=== PATIENT | female | born 2005 | race Caucasian/White ===

== ENCOUNTER 2024-11-05 08:40 | Emergency (ER) | payer SELFPAY ==
[2024-11-05] MEDS: Sodium Chloride 0.9% 10 ML Syringe FLUSH PRN (09:21)
[2024-11-05] MEDS: Ondansetron 4 MG/2 ML SDV IVPUSH ONE (09:21)
[2024-11-05] MEDS: Sodium Chloride 0.9% 1,000 ML IV SCH (09:24)
[2024-11-05 09:31] LABS: BASOPHILS ABSOLUTE AUTO 0.1 x10-3/uL (0.0-0.1); BASOPHILS PERCENT AUTO 0.4 % (0.2-1.5); EOSINOPHILS PERCENT AUTO 0.2 % (0.6-8.1); HEMATOCRIT 34.6 % (34.2-48.2); HEMOGLOBIN 11.8 g/dL (11.4-15.5); LYMPHOCYTES ABSOLUTE AUTO 1.2 x10-3/uL (1.0-4.4); LYMPHOCYTES PERCENT AUTO 8.8 % (18.4-52.1); MEAN CORPUSCULAR HEMOGLOBIN 27.3 pg (23.9-33.9); MEAN CORPUSCULAR VOLUME 80.4 fL (76.7-100.5); MEAN PLATELET VOLUME 9.4 fL (7.1-12.4); MONOCYTES ABSOLUTE AUTO 0.7 x10-3/uL (0.3-1.0); MONOCYTES PERCENT AUTO 5.6 % (4.4-15.7); NEUTROPHILS ABSOLUTE AUTO 11.1 x10-3/uL (1.5-6.3); PLATELET COUNT,PLT 272 x10(3)uL (151-488); RED CELL DISTRIBUTION WIDTH 14.3 % (12.3-16.5); WHITE BLOOD CELL COUNT,WBC 13.1 x10-3/uL (3.0-10.3)
[2024-11-05 09:33] LABS: BILIRUBIN,URINE NEGATIVE (NEGATIVE); GLUCOSE,URINE NORMAL (NORMAL); KETONES,URINE NEGATIVE (NEGATIVE); LEUKOCYTE ESTERASE,URINE LARGE (NEGATIVE); NITRITE,URINE NEGATIVE (NEGATIVE); OCCULT BLOOD,URINE LARGE (NEGATIVE); PROTEIN,URINE 100 mg/dL (NEGATIVE); UROBILINOGEN,URINE NORMAL (NEGATIVE)
[2024-11-05 09:34] LABS: APPEARANCE,URINE SLIGHTLY CLOUDY (CLEAR); COLOR,URINE RED (YELLOW); RBC,URINE >100 (0-5); WBC,URINE >100 (0-5)
[2024-11-05 09:35] LABS: BACTERIA,URINE MODERATE (NS); SQUAMOUS EPITHELIAL CELLS,UR FEW (NS,R,O)
[2024-11-05 09:35] LABS: BLOOD UREA NITROGEN,BUN 16 mg/dL (7-18); CALCIUM 9.2 mg/dL (8.2-10.1); CARBON DIOXIDE,CO2 24 mmol/L (21-32); CHLORIDE,CL 104 mmol/L (100-110); ESTIMATED GFR 83 mL/min (>60); GLUCOSE RANDOM 129 mg/dL (80-116); POTASSIUM,K 3.9 mmol/L (3.5-5.3); SODIUM,NA 141 mmol/L (135-145)
[2024-11-05 09:42] LABS: ALANINE AMINOTRANSFERASE,ALT 22 U/L (12-36); ALKALINE PHOSPHATASE 66 IU/L (56-112); ASPARTATE AMNIOTRANSFERASE,AST 9 IU/L (5-25); BILIRUBIN TOTAL 0.5 mg/dL (0.1-1.2); PROTEIN TOTAL,TP 7.9 g/dL (6.0-8.0)
[2024-11-05 11:01] VITALS: BP 119/61; PULSE 103
== END 2024-11-05 10:45 | disposition home or self-care (01) ==
LOC: FB.ED 08:40
DX: N10 Acute pyelonephritis (principal); Z79.899 Other long term (current) drug therapy
CPT/HCPCS: 36415; 80053; 81001; 83690; 85025; 87086; 87088; 87186; 96361; 96374; 99284-25; J2405; J7030